=== PATIENT | female | born 1965 | race Two or more races ===

== ENCOUNTER → 2018-01-10 | Outpatient (REF) | payer OTHER ==
[2018-01-10 14:05] LABS: BASO % 0.4 % (0.0-1.0); EOS # 0.1 10^3/uL (0.0-0.50); EOS % 1.4 % (0.0-3.0); HEMOGLOBIN 12.4 g/dl (12.0-15.5); IMMATURE GRANULOCYTE % 0.2 % (0-3.0); LYMPH % 25.1 % (24.0-44.0); MEAN CORPUSCULAR HEMOGLOBIN 29.7 pg (27.0-33.0); MEAN CORPUSCULAR HGB CONC 32.6 g/dl (32.0-36.5); MEAN CORPUSCULAR VOLUME 91.1 fl (80.0-96.0); MONO # 0.6 10^3/uL (0.0-0.8); MONO % 7.7 % (0.0-5.0); NEUTROPHILS # 5.2 10^3/uL (1.8-7.7); NEUTROPHILS % 65.2 % (36.0-66.0); PLATELET COUNT, AUTOMATED 185 10^3/uL (150-450); RED BLOOD COUNT 4.17 10^6/uL (4.00-5.40); RED CELL DISTRIBUTION WIDTH 12.2 % (11.5-14.5)
[2018-01-10 14:36] LABS: ALBUMIN 3.5 GM/DL (3.2-5.2); ALBUMIN/GLOBULIN RATIO 0.95 (1.00-1.93); ALKALINE PHOSPHATASE 275 U/L (45-117); ALT/SGPT 37 U/L (12-78); ANION GAP 7 MEQ/L (8-16); AST/SGOT 22 U/L (7-37); BILIRUBIN,TOTAL 0.1 MG/DL (0.2-1.0); BLOOD UREA NITROGEN 24 MG/DL (7-18); CALCIUM LEVEL 8.3 MG/DL (8.5-10.1); CARBON DIOXIDE LEVEL 24 MEQ/L (21-32); CHLORIDE LEVEL 112 MEQ/L (98-107); CHOLESTEROL LEVEL 184 MG/DL (<200); CHOLESTEROL RISK RATIO 2.967 (<5); CREATININE FOR GFR 0.72 MG/DL (0.55-1.30); GLOMERULAR FILTRATION RATE > 60.0 (>51); GLUCOSE, FASTING 89 MG/DL (70-100); HDL CHOLESTEROL 62 MG/DL (>40); LDL CHOLESTEROL 98.4 MG/DL (<100); NON-HDL-C 122 MG/DL; SODIUM LEVEL 143 MEQ/L (136-145); TOTAL PROTEIN 7.2 GM/DL (6.4-8.2); TRIGLYCERIDES LEVEL 118 MG/DL (<150)
[2018-01-10 14:37] LABS: TOTAL 25(OH) VITAMIN D 20.6 NG/ML (30.0-100.0)
[2018-01-10 14:56] LABS: ESTIMATED AVERAGE GLUCOSE 108 MG/DL (60-110); HEMOGLOBIN A1c 5.4 %
== END ==
LOC: M LAB REF 13:38
DX: Z13.9 Encounter for screening, unspecified (principal)

== ENCOUNTER → 2018-01-26 | Outpatient (CLI) | payer OTHER | LOC: M RAD 10:01 | DX: M54.6 Pain in thoracic spine (principal); M54.5 Low back pain | CPT/HCPCS: 72072 ==

== ENCOUNTER → 2018-04-19 | Outpatient (REF) | payer OTHER ==
[2018-04-19 12:41] LABS: ALBUMIN 3.8 GM/DL (3.2-5.2); ALBUMIN/GLOBULIN RATIO 1.06 (1.00-1.93); ALKALINE PHOSPHATASE 61 U/L (45-117); ALT/SGPT 36 U/L (12-78); ANION GAP 4 MEQ/L (8-16); AST/SGOT 20 U/L (7-37); BILIRUBIN,TOTAL 0.3 MG/DL (0.2-1.0); BLOOD UREA NITROGEN 16 MG/DL (7-18); CALCIUM LEVEL 8.9 MG/DL (8.5-10.1); CARBON DIOXIDE LEVEL 31 MEQ/L (21-32); CHLORIDE LEVEL 108 MEQ/L (98-107); CREATININE FOR GFR 0.76 MG/DL (0.55-1.30); GLOMERULAR FILTRATION RATE > 60.0 (>51); GLUCOSE, FASTING 91 MG/DL (70-100); POTASSIUM SERUM 3.9 MEQ/L (3.5-5.1); SODIUM LEVEL 143 MEQ/L (136-145); TOTAL PROTEIN 7.4 GM/DL (6.4-8.2)
[2018-04-19 12:59] LABS: TOTAL 25(OH) VITAMIN D 77.5 NG/ML (30.0-100.0)
== END ==
LOC: M LAB REF 11:54
DX: E55.9 Vitamin D deficiency, unspecified (principal); M54.6 Pain in thoracic spine; R74.8 Abnormal levels of other serum enzymes; G47.00 Insomnia, unspecified

== ENCOUNTER → 2018-09-02 | Outpatient (REF) | payer OTHER ==
[2018-09-02 14:35] LABS: ALBUMIN 3.9 GM/DL (3.2-5.2); ALT/SGPT 36 U/L (12-78); BILIRUBIN,TOTAL 0.4 MG/DL (0.2-1.0); BLOOD UREA NITROGEN 21 MG/DL (7-18); CALCIUM LEVEL 8.9 MG/DL (8.5-10.1); CARBON DIOXIDE LEVEL 27 MEQ/L (21-32); CHLORIDE LEVEL 110 MEQ/L (98-107); CHOLESTEROL LEVEL 191 MG/DL (<200); CHOLESTEROL RISK RATIO 2.808 (<5); CREATININE FOR GFR 0.79 MG/DL (0.55-1.30); GLOMERULAR FILTRATION RATE > 60.0 (>51); GLUCOSE, FASTING 101 MG/DL (70-100); HDL CHOLESTEROL 68 MG/DL (>40); LDL CHOLESTEROL 107 MG/DL (<100); NON-HDL-C 123 MG/DL; POTASSIUM SERUM 4.2 MEQ/L (3.5-5.1); SODIUM LEVEL 142 MEQ/L (136-145); TOTAL PROTEIN 7.1 GM/DL (6.4-8.2); TRIGLYCERIDES LEVEL 80 MG/DL (<150)
== END ==
LOC: M LAB REF 11:44
PROVIDERS: ATTEND Family Medicine Addiction Medicine
DX: E78.5 Hyperlipidemia, unspecified (principal)

== ENCOUNTER → 2018-11-03 | Outpatient (CLI) | payer OTHER ==
--- NOTE | 2018-11-03 11:03 | REPMRS ---
Patient History The patient states she had a clinical breast exam in 10/2018. No known family history of cancer. No Hormone Replacement Therapy 3D TOMOSYNTHESIS WAS PERFORMED. The Neida Atkinson lifetime risk for breast cancer is 9.8%. Digital Woman Screen Mammo: November 03, 2018 - Exam #: [id number] Bilateral CC and MLO view(s) were taken. Technologist: Ирина Alvarez, Technologist Prior study comparison: March 16, 2016, digital woman screen mammo performed at [facility]. January 23, 2015, digital woman screen mammo performed at [facility]. FINDINGS: The breast tissue is heterogeneously dense. This may lower the sensitivity of mammography. There has been no change in the appearance of the mammogram from the prior studies. There is a moderate amount of residual fibroglandular tissue which is fairly symmetric. There is no interval development of dominant mass, areas of architectural distortion, or clustered microcalcification typical of malignancy. Assessment: BI-RADS/ACR category 1 mammogram. Negative Mammogram. Recommendation Routine screening mammogram in 1 year (for women over age 40). This mammogram was interpreted with the aid of an FDA-approved computer-aided dectection system. Electronically Signed By: Ashvin Ahumada MD 11/03/18 [id number]
== END ==
LOC: M WHC 09:45
PROVIDERS: ATTEND Nurse Practitioner Family
DX: Z12.31 Encounter for screening mammogram for malignant neoplasm of breast (principal)

== ENCOUNTER → 2018-11-03 | Outpatient (REF) | payer OTHER ==
[2018-11-09 16:11] LABS: HPV HYBRID CAPTURE II Negative (Negative)
== END ==
LOC: M SFHCWAGY 10:03
PROVIDERS: ATTEND Nurse Practitioner Family
DX: Z12.4 Encounter for screening for malignant neoplasm of cervix (principal)

== ENCOUNTER → 2019-09-04 | Outpatient (REF) | payer OTHER ==
[2019-09-04 18:56] LABS: BASO % 0.7 % (0.0-1.0); EOS # 0.1 10^3/uL (0.0-0.5); EOS % 2.3 % (0.0-3.0); HEMATOCRIT 41.6 % (36.0-47.0); HEMOGLOBIN 13.5 g/dl (12.0-15.5); LYMPH # 2.4 10^3/uL (1.5-5.0); LYMPH % 43.3 % (24.0-44.0); MEAN CORPUSCULAR HEMOGLOBIN 30.2 pg (27.0-33.0); MEAN CORPUSCULAR HGB CONC 32.5 g/dl (32.0-36.5); MEAN CORPUSCULAR VOLUME 93.1 fl (80.0-96.0); MONO # 0.5 10^3/uL (0.0-0.8); MONO % 8.9 % (0.0-5.0); NEUTROPHILS # 2.5 10^3/uL (1.5-8.5); NEUTROPHILS % 44.6 % (36.0-66.0); PLATELET COUNT, AUTOMATED 228 10^3/uL (150-450); RED BLOOD COUNT 4.47 10^6/uL (4.00-5.40); WHITE BLOOD COUNT 5.6 10^3/uL (4.0-10.0)
[2019-09-04 19:01] LABS: ALBUMIN 3.9 GM/DL (3.2-5.2); ALT/SGPT 52 U/L (12-78); BILIRUBIN,TOTAL 0.4 MG/DL (0.2-1.0); BLOOD UREA NITROGEN 18 MG/DL (7-18); CALCIUM LEVEL 8.7 MG/DL (8.5-10.1); CARBON DIOXIDE LEVEL 29 MEQ/L (21-32); CHLORIDE LEVEL 107 MEQ/L (98-107); CHOLESTEROL LEVEL 251 MG/DL (<200); CHOLESTEROL RISK RATIO 3.024 (<5); CREATININE FOR GFR 0.84 MG/DL (0.55-1.30); GLOMERULAR FILTRATION RATE > 60.0 (>51); GLUCOSE, FASTING 90 MG/DL (70-100); HDL CHOLESTEROL 83 MG/DL (>40); LDL CHOLESTEROL 150 MG/DL (<100); NON-HDL-C 168 MG/DL; SODIUM LEVEL 140 MEQ/L (136-145); TOTAL PROTEIN 7.6 GM/DL (6.4-8.2); TRIGLYCERIDES LEVEL 92 MG/DL (<150)
[2019-09-04 19:02] LABS: TOTAL 25(OH) VITAMIN D 37.3 NG/ML (30.0-100.0)
[2019-09-04 19:11] LABS: HEMOGLOBIN A1c 5.5 %
== END ==
LOC: M LAB REF 17:25
PROVIDERS: ATTEND Family Medicine
DX: Z00.01 Encounter for general adult medical examination with abnormal findings (principal)

== ENCOUNTER → 2020-08-29 | Outpatient (CLI) | payer OTHER ==
--- NOTE | 2020-08-29 11:59 | REPMRS ---
Patient History The patient states she had a clinical breast exam in August 2020. No known family history of cancer. No Hormone Replacement Therapy Digital Woman Screen Mammo: August 29, 2020 - Exam #: [id number] Bilateral CC and MLO view(s) were taken. Technologist: Radha Calles, Technologist Prior study comparison: November 03, 2018, bilateral digital woman screen mammo performed at [facility]. March 16, 2016, digital woman screen mammo performed at [facility]. January 23, 2015, digital woman screen mammo performed at [facility]. FINDINGS: There are scattered fibroglandular densities. The Volpara volumetric breast density category is:B. There has been no change in the appearance of the mammogram from the prior studies. There is a mild amount of scattered fibroglandular density which is fairly symmetric. There is no interval development of dominant mass, architectural distortion, or grouped microcalcification suggestive of malignancy. 3-D tomosynthesis shows no additional findings. Assessment: BI-RADS/ACR category 1 mammogram. Negative Mammogram. Recommendation Routine screening mammogram of both breasts in 1 year (for women over age 40). This patient's [facility] Lifetime Breast Cancer Risk is estimated at 9.4 %. This mammogram was interpreted with the aid of an FDA-approved computer-aided dectection system. Electronically Signed By: Lane Reardon MD 08/29/20 [id number]
== END ==
LOC: M WHC 10:47
PROVIDERS: ATTEND Nurse Practitioner Women's Health
DX: Z12.31 Encounter for screening mammogram for malignant neoplasm of breast (principal)

== ENCOUNTER → 2020-08-29 | Outpatient (REF) | payer OTHER | LOC: M SFHCWAGY 12:58 | PROVIDERS: ATTEND Nurse Practitioner Women's Health | DX: Z12.4 Encounter for screening for malignant neoplasm of cervix (principal) ==

== ENCOUNTER → 2021-12-21 | Outpatient (CLI) | payer OTHER ==
[~2021-12-21] MED LIST: GABA-283 PO; MELA3TAB49 PO; TIZA2CAP PO; TRAZ-252 PO
== END ==
LOC: M LABSMTC 09:30
PROVIDERS: ATTEND Anesthesiology
DX: Z01.818 Encounter for other preprocedural examination (principal); Z11.52 Encounter for screening for COVID-19

== ENCOUNTER 2021-12-24 10:59 | Day surgery (SDC) | payer OTHER ==
[~2021-12-24] VITALS: Ht 154.9 cm; Wt 59.6 kg
[~2021-12-24 10:59] MED LIST changes: +NS 1,000 ML IV ONE
[2021-12-24] MEDS ORDERED: LIDOCAINE 2% 100MG/5ML SDV (FOR ANES.) As Ordered ONE (11:36)
[2021-12-24] MEDS ORDERED: propofoL 200 MG/20 ML VIAL As Ordered ONE (11:36)
[2021-12-24 13:45] VITALS: BP 135/90
== END 2021-12-24 13:53 | disposition home or self-care (01) ==
LOC: M OPP 10:59
PROVIDERS: ATTEND Internal Medicine Gastroenterology
DX: Z12.11 Encounter for screening for malignant neoplasm of colon (principal); K64.0 First degree hemorrhoids; K57.30 Diverticulosis of large intestine without perforation or abscess without bleeding; M19.90 Unspecified osteoarthritis, unspecified site; Z79.899 Other long term (current) drug therapy

== ENCOUNTER → 2022-01-05 | Outpatient (REF) | payer OTHER ==
[~2022-01-05] MED LIST changes: -NS 1,000 ML IV ONE
== END ==
LOC: M PLALAB 10:41
PROVIDERS: ATTEND Nurse Practitioner Family
DX: Z12.4 Encounter for screening for malignant neoplasm of cervix (principal)

== ENCOUNTER → 2022-01-13 | Outpatient (CLI) | payer OTHER | LOC: M WHC 08:12 | PROVIDERS: ATTEND Nurse Practitioner Family | DX: Z12.31 Encounter for screening mammogram for malignant neoplasm of breast (principal) ==

== ENCOUNTER → 2022-03-03 | Outpatient (REF) | payer OTHER ==
[2022-03-03 19:13] LABS: ALBUMIN 4.2 GM/DL (3.2-5.2); ALT/SGPT 39 U/L (12-78); BILIRUBIN,TOTAL 0.3 MG/DL (0.2-1.0); BLOOD UREA NITROGEN 10 MG/DL (7-18); CALCIUM LEVEL 9.6 MG/DL (8.5-10.1); CARBON DIOXIDE LEVEL 29 MEQ/L (21-32); CHLORIDE LEVEL 108 MEQ/L (98-107); CHOLESTEROL LEVEL 197 MG/DL (<200); CHOLESTEROL RISK RATIO 2.897 (<5); CREATININE FOR GFR 0.66 MG/DL (0.55-1.30); GLOMERULAR FILTRATION RATE > 60.0 (>51); GLUCOSE, FASTING 97 MG/DL (70-100); HDL CHOLESTEROL 68 MG/DL (>40); LDL CHOLESTEROL 102 MG/DL (<100); NON-HDL-C 129 MG/DL; POTASSIUM SERUM 3.9 MEQ/L (3.5-5.1); SODIUM LEVEL 142 MEQ/L (136-145); THYROID STIMULATING HORMONE 0.107 uIU/ML (0.358-3.740); TOTAL PROTEIN 7.9 GM/DL (6.4-8.2); TRIGLYCERIDES LEVEL 133 MG/DL (<150)
== END ==
LOC: M LAB REF 16:35
PROVIDERS: ATTEND Family Medicine Addiction Medicine
DX: E78.01 Familial hypercholesterolemia (principal)

== ENCOUNTER → 2022-03-10 | Outpatient (REF) | payer OTHER ==
[2022-03-10 19:10] LABS: FREE T4 1.11 NG/DL (0.76-1.46); THYROID STIMULATING HORMONE 0.41 uIU/ML (0.358-3.740)
== END ==
LOC: M LAB REF 16:43
PROVIDERS: ATTEND Family Medicine Addiction Medicine
DX: R94.6 Abnormal results of thyroid function studies (principal)